=== PATIENT | female | born 1995 | race Caucasian/White ===

== ENCOUNTER 2016-10-06 08:06 | Emergency (ER) | payer MEDICAID ==
[~2016-10-06 08:06] MED LIST: BACT800T5 PO; INDO25CA PO; MACR100C PO
--- NOTE | 2016-10-06 09:08 | PD ---
HPI Chief Complaint No movement for 24 hours Date Seen: Oct 06, 2016 Time Seen: 09:04 Travel History International Travel<30 Days: No Contact w/Intl Traveler<30Days: No Known Affected Area: No History of Present Illness HPI 21-year-old female G1 to P1 who is at 19 weeks 1 day comes in complaining of decreased movement for the past 24 hours. She had vaginal spotting last night with heavier bleeding this morning and called her OB provider who instructed her to come to this hospital. Patient states she has a little bit of cramping but otherwise feels well and denies any complications. Patient states she had a normal ultrasound approximately 1 month ago as well as normal set of lab work. Para: 1 : 2 History Past Medical History Medical History: Denies Significant Hx Obstetric History Obstetric History Past Surgical History Narrative Surgical Family History Family History: Negative Social History Alcohol Use: No Tobacco Use: No Substance Abuse: No Allergies-Medications (Allergen,Severity, Reaction): Coded Allergies: No Known Allergies (Verified , 07/07/14) Home Meds Active Scripts Sulfamethoxazole-Trimethoprim DS (Bactrim DS)1 Tab Tab1 Tab PO BID #14 TAB Prov:Mark Swanson MD 07/07/14 Indomethacin (Indocin)25 Mg Cap1 Tab PO TID #30 CAP Prov:Mark Swanson MD 07/07/14 Nitrofurantoin Monohyd Macro (Macrobid)100 Mg [id number] Mg PO BID #20 CAP Prov:Michele Moore MD 07/07/14 Review of Systems Except as stated in HPI: all other systems reviewed are Neg Physical Exam Narrative GENERAL: Well-nourished, well-developed patient. SKIN: Warm and dry. HEAD: Normocephalic and atraumatic. EYES: No scleral icterus. No injection or drainage. ENT: No nasal drainage noted. Mucous membranes pink. Airway patent. NECK: Supple, trachea midline. No JVD. CARDIOVASCULAR: Regular rate and rhythm without murmurs, gallops, or rubs. RESPIRATORY: Breath sounds equal bilaterally. No accessory muscle use. BREASTS: Bilateral exam showed no masses , no retractions, no nipple discharge. ABDOMEN/GI: Abdomen soft, non-tender, bowel sounds present, no rebound, no guarding Gravid to [16] weeks size Fundal Height: [16-] GENITOURINARY: External Genitalia: intact and normal in appearance. Small amount of blood noted in posterior fornix, no active bleeding noted BUS glands: [-nl] Cervix: [posterior-] Dilatation: [closed-] Effacement: [-long] Station: [-] FHT's: Unable to auscultate on doppler. Bedside ultrasound no heart activity noted, no fluid around fetus. EXTREMITIES: No cyanosis or edema. BACK: Nontender without obvious deformity. No CVA tenderness. NEUROLOGICAL: Awake and alert. Motor and sensory grossly within normal limits. Five out of 5 muscle strength in all muscle groups. Normal speech. [facility] here for formal sonogram: [id number] , no heart tones, oligohydramnios, low lying placenta noted. Cervical length transabdominal 3.9cm Data Data Vital Signs Reviewed: Yes Orders Vital Signs (Adult) .ON ADMISSION (10/06/16 09:00) ^ Labor Status (10/06/16 09:00) Diet Liquid (10/06/16 Breakfast) Us Ob Bpp Wo Nst (10/06/16 09:00) MDM Medical Record Reviewed: Yes Plan 21 yo at [id number] per patient STEPHANIE. demise, no heart tones with fetus measuring [id number]. Low lying placenta on sonogram with no active bleeding on exam today. Previous section Patient will follow up with her primary OB at [facility] across the [address] this morning for plan of care and delivery options Diagnosis Diagnosis: Primary Impression: 19 weeks gestation of Additional Impressions: demise before 20 weeks with retention of fetus Previous delivery affecting , antepartum Disposition: DISCHARGE HOME Nancy Christian MD Oct 06, 2016 09:08
== END 2016-10-06 09:45 | disposition home or self-care (01) ==
LOC: HOBED 08:06
DX: O02.1 Missed abortion (principal); Z79.899 Other long term (current) drug therapy
CPT/HCPCS: 76815